=== PATIENT | female | born 1960 | race Hispanic/Latino ===

== ENCOUNTER 2022-08-22 18:10 | Inpatient (IN) | payer OTHER ==
[~2022-08-22] VITALS: Ht 154.9 cm; Wt 61.0 kg
[2022-08-22 20:20] VITALS: BP 141/82
[2022-08-22] MEDS ORDERED: LACTULOSE 20 GM/30 ML UDCUP PO PRN (21:00)
[2022-08-22] MEDS ORDERED: ACETAMINOPHEN 325 MG TAB PO PRN (21:00)
[2022-08-22] MEDS ORDERED: ONDANSETRON 4MG INJ IV PRN (21:00)
[2022-08-22] MEDS ORDERED: NITROGLYCERIN 0.4 MG SL TAB SL PRN (21:00)
[2022-08-22] MEDS: FAMOTIDINE 20MG TAB PO SCH (21:34)
[2022-08-23 00:30] VITALS: BP 113/64
[2022-08-23 04:12] VITALS: BP 120/62
[2022-08-23 04:29] LABS: BASOPHILS % (AUTO) 0.2 % (0.0-5.0); EOSINOPHILS % (AUTO) 0.1 % (0.0-8.0); HEMATOCRIT 34.7 % (36-48); LYMPHOCYTES % (AUTO) 19.2 % (21.0-51.0); MEAN CORPUSCULAR HEMOGLOBIN 30.4 pg (27.0-33.0); MEAN CORPUSCULAR HGB CONC 34.3 g/dL (32.0-36.0); MEAN CORPUSCULAR VOLUME 88.5 fL (79-99); MONOCYTES % (AUTO) 9.7 % (3.0-13.0); NEUTROPHILS % (AUTO) 70.3 % (40.0-77.0); PLATELET COUNT (AUTO) 238 K/uL (130-400); RED BLOOD CELL COUNT(AUTO) 3.92 MIL/uL (4.00-5.50); RED CELL DISTRIBUTION WIDTH 12.7 % (11.0-15.5); WHITE BLOOD COUNT (AUTO) 8.9 K/uL (4.8-10.8)
[2022-08-23 04:37] LABS: HEMOGLOBIN A1C 9.9 % (4.0-6.0)
[2022-08-23 04:54] LABS: ALBUMIN 3.3 g/dL (3.5-5.0); CREATININE 0.7 mg/dL (0.5-1.5); INR 0.93 (0.85-1.15); POTASSIUM 3.7 mmol/L (3.5-5.1); PROTHROMBIN TIME 9.9 SEC (9.6-11.6); TOTAL PROTEIN, SERUM 6.6 g/dL (6.0-8.3)
[2022-08-23 04:55] LABS: PARTIAL THROMBOPLASTIN TIME 37.8 SEC (26.3-35.5)
[2022-08-23 04:59] LABS: ABG BASE EXCESS -1.2 mmol/L (-2.0-3.0); ABG HCO3 22.1 mmol/L (21.0-28.0); ABG OXYGEN SATURATION 96.1 % (95.0-99.0); ABG PCO2 34 mmHg (32-45)
[2022-08-23 05:09] LABS: B-TYPE NATRIURETIC PEPTIDE 229 pg/mL (0-100)
[2022-08-23] MEDS ORDERED: HEPARIN 5,000 UNIT VIAL ONE (05:09)
[2022-08-23] MEDS ORDERED: HEPARIN 25,000 UNITS/250ML D5W 250 ML IV SCH (05:30)
[2022-08-23] MEDS ORDERED: HEPARIN 5,000 UNIT VIAL SQ PRN (05:30)
[2022-08-23] MEDS: INSULIN HUMULIN R 100 UNIT/ML 3ML SQ SCH ×4 (06:00→17:48)
[2022-08-23 07:00] VITALS: BP 116/72
[2022-08-23] MEDS: FAMOTIDINE 20MG TAB PO SCH ×2 (08:06→20:39)
[2022-08-23] MEDS: ASPIRIN 81 MG EC TAB PO SCH (08:06)
[2022-08-23] MEDS ORDERED: CLOPIDOGREL 75MG TAB PO SCH (09:00)
[2022-08-23 11:00] VITALS: BP 134/71
[2022-08-23 16:00] VITALS: BP 137/69
[2022-08-23 19:03] VITALS: BP 112/66
[2022-08-23] MEDS: ATORVASTATIN 40 MG TABLET PO SCH (20:39)
[2022-08-23] MEDS: METOPROLOL TARTRATE 25 MG TAB PO SCH (20:39)
[2022-08-24] VITALS (39 sets, daily range): BP systolic 19–226; BP diastolic 43–225
[2022-08-24 04:28] LABS: HEMATOCRIT 33.6 % (36-48); MEAN CORPUSCULAR HGB CONC 33.6 g/dL (32.0-36.0); MEAN CORPUSCULAR VOLUME 89.1 fL (79-99); RED BLOOD CELL COUNT(AUTO) 3.77 MIL/uL (4.00-5.50); RED CELL DISTRIBUTION WIDTH 12.8 % (11.0-15.5); WHITE BLOOD COUNT (AUTO) 7.9 K/uL (4.8-10.8)
[2022-08-24 04:42] LABS: INR 0.93 (0.85-1.15); PROTHROMBIN TIME 10.2 SEC (9.6-11.6)
[2022-08-24 04:44] LABS: CREATININE 0.7 mg/dL (0.5-1.5); PARTIAL THROMBOPLASTIN TIME 40.4 SEC (26.3-35.5); POTASSIUM 3.4 mmol/L (3.5-5.1)
[2022-08-24 05:00] LABS: ALBUMIN 2.9 g/dL (3.5-5.0); TOTAL PROTEIN, SERUM 6.7 g/dL (6.0-8.3)
[2022-08-24] MEDS: INSULIN HUMULIN R 100 UNIT/ML 3ML SQ SCH ×3 (05:07→11:39)
[2022-08-24] MEDS ORDERED: POTASSIUM CHLORIDE 10% ELIXIR 20 MEQ/15 ML UDCUP PO PRN (05:30)
[2022-08-24] MEDS ORDERED: LIDOCAINE HCL-MPF 1% 2ML VIAL IV PRN (05:30)
[2022-08-24] MEDS: KCL 20 MEQ ERTAB PO PRN (06:06)
[2022-08-24] MEDS ORDERED: PAPAVERINE HCL 30 MG/ML 2ML VIAL ONE (08:53)
[2022-08-24] MEDS ORDERED: CEFAZOLIN SODIUM 1 GM VIAL ONE ×2 (08:53→10:21)
[2022-08-24] MEDS: ASPIRIN 81 MG EC TAB PO SCH (08:54)
[2022-08-24] MEDS: FAMOTIDINE 20MG TAB PO SCH (08:55)
[2022-08-24] MEDS: METOPROLOL TARTRATE 25 MG TAB PO SCH (08:55)
[2022-08-24] MEDS ORDERED: NOREPINEPHRINE BITARTRATE 8 MG in DEXTROSE 5%-WATER 250 ML IV PRN (10:00)
[2022-08-24] MEDS ORDERED: EPINEPHRINE PF 1MG (1:1,000) 10 MG in 0.9% NACL 250ML 240 ML IV PRN ×2 (10:00→15:30)
[2022-08-24] MEDS ORDERED: AMINOCAPROIC ACID 5,000MG VIAL 15,000 MG in 0.9% NACL 500ML IV.SOLN 420 ML IV PRN (10:00)
[2022-08-24] MEDS ORDERED: NITROGLYCERIN 50MG/D5W 250ML 1 BOT ONE (10:16)
[2022-08-24] MEDS: CEFAZOLIN SODIUM 1 GM VIAL IVP SCH ×2 (10:51→12:20)
[2022-08-24] MEDS ORDERED: SODIUM BICARB 50MEQ 50ML VIAL 150 ML ONE ×2 (11:58→13:44)
[2022-08-24] MEDS ORDERED: EPINEPHRINE PF 1MG (1:1,000) 1 MG/ML AMP ONE (11:58)
[2022-08-24] MEDS ORDERED: LIDOCAINE PF 100MG/5ML (2%) SYRINGE 5ML ONE (11:58)
[2022-08-24] MEDS ORDERED: NOREPINEPHRINE BITARTRATE 1 MG/1 ML ML IV ONE (11:58)
[2022-08-24] MEDS ORDERED: AMINOCAPROIC ACID 5,000MG VIAL ONE (11:58)
[2022-08-24] MEDS ORDERED: HEPARIN 10,000 UNIT/10ML (1,000 UNIT/ML) VIAL ONE (11:58)
[2022-08-24] MEDS ORDERED: ESMOLOL HCL 10 MG/ML 10 ML VIAL ONE ×2 (11:58→14:05)
[2022-08-24] MEDS ORDERED: PROTAMINE SULFATE 10 MG/ML 25ML VIAL IV ONE (11:58)
[2022-08-24] MEDS ORDERED: PROPOFOL 10 MG/ML 20ML VIAL IV ONE (11:59)
[2022-08-24] MEDS ORDERED: MIDAZOLAM HCL 1 MG/ML 2ML VIAL ONE (12:00)
[2022-08-24] MEDS ORDERED: ROCURONIUM 10MG/1ML SYR 10 MG/ML ML ONE (12:00)
[2022-08-24] MEDS ORDERED: FENTANYL CITRATE PF 50 MCG/1 ML 20ML VIAL IJ ONE (12:00)
[2022-08-24] MEDS ORDERED: ETOMIDATE 20MG VIAL ONE (12:01)
[2022-08-24] MEDS ORDERED: VASOPRESSIN 20 UNITS/ML 1ML VIAL ONE (12:19)
[2022-08-24] MEDS ORDERED: AMIODARONE 150MG VIAL ONE (12:21)
[2022-08-24] MEDS ORDERED: METOPROLOL TARTRATE 1 MG/ML 5ML VIAL IV ONE (12:30)
[2022-08-24 12:55] LABS: ABG BASE EXCESS -8.3 mmol/L (-2.0-3.0); ABG HCO3 18.3 mmol/L (21.0-28.0); ABG OXYGEN SATURATION 99.6 % (95.0-99.0); ABG PCO2 42 mmHg (32-45)
[2022-08-24] MEDS ORDERED: SODIUM BICARB 50MEQ 50ML VIAL 200 ML ONE (13:06)
[2022-08-24 13:46] LABS: ABG BASE EXCESS 1.3 mmol/L (-2.0-3.0); ABG HCO3 23.3 mmol/L (21.0-28.0); ABG PCO2 28 mmHg (32-45)
[2022-08-24 14:17] LABS: ABG BASE EXCESS 4.5 mmol/L (-2.0-3.0); ABG HCO3 26.6 mmol/L (21.0-28.0); ABG PCO2 31 mmHg (32-45)
[2022-08-24 14:29] LABS: ABG HCO3 23.2 mmol/L (21.0-28.0); ABG PCO2 29 mmHg (32-45)
[2022-08-24 14:50] LABS: ABG BASE EXCESS -5.1 mmol/L (-2.0-3.0); ABG HCO3 17.3 mmol/L (21.0-28.0); ABG OXYGEN SATURATION 98.8 % (95.0-99.0); ABG PCO2 24 mmHg (32-45)
[2022-08-24 15:07] LABS: ABG BASE EXCESS 6.7 mmol/L (-2.0-3.0); ABG HCO3 28.4 mmol/L (21.0-28.0); ABG OXYGEN SATURATION 98.6 % (95.0-99.0); ABG PCO2 30 mmHg (32-45)
[2022-08-24] MEDS ORDERED: ONDANSETRON 4MG INJ IV PRN (15:30)
[2022-08-24] MEDS ORDERED: POTASSIUM PHOS 15 mMOL+NS250ML 250 ML IV PRN (15:30)
[2022-08-24] MEDS ORDERED: GLUCAGON 1MG KIT 1 MG ML IM PRN (15:30)
[2022-08-24] MEDS ORDERED: ACETAMINOPHEN 650 MG SUPPOSITORY RC PRN (15:30)
[2022-08-24] MEDS ORDERED: ALBUMIN (HUMAN) 5% 250 ML IV PRN (15:30)
[2022-08-24] MEDS ORDERED: PROPOFOL 1000 MG/100 ML 100 ML IV PRN (15:30)
[2022-08-24] MEDS ORDERED: NOREPINEPHRIN 4MG/NS 250ML 250 ML IV PRN (15:30)
[2022-08-24] MEDS ORDERED: AMINOCAPROIC ACID 5,000MG VIAL 15,000 MG in 0.9% NACL 250ML 250 ML IV SCH (15:30)
[2022-08-24] MEDS ORDERED: 0.9% NACL 500ML IV.SOLN 500 ML IV SCH (15:30)
[2022-08-24] MEDS ORDERED: DEXTROSE 50%-WATER 50 ML DISP.SYRIN IV PRN (15:30)
[2022-08-24] MEDS ORDERED: ACETAMINOPHEN 325 MG TAB PO PRN (15:30)
[2022-08-24] MEDS ORDERED: CALCIUM GLUC 1GM 1 GM in 0.9%NACL 50ML 50 ML IV PRN (15:30)
[2022-08-24] MEDS ORDERED: 0.9%NACL 10ML VIAL IVP PRN (15:30)
[2022-08-24] MEDS ORDERED: MORPHINE 2 MG SYG IV PRN ×2 (15:30)
[2022-08-24] MEDS ORDERED: 0.9%NACL 1000ML 1,000 ML IV SCH (15:30)
[2022-08-24] MEDS ORDERED: NITROGLYCERIN 50MG/D5W 250ML 250 BOT IV SCH (15:30)
[2022-08-24 15:32] LABS: ABG BASE EXCESS 5.7 mmol/L (-2.0-3.0); ABG HCO3 28.6 mmol/L (21.0-28.0); ABG OXYGEN SATURATION 98.6 % (95.0-99.0); ABG PCO2 34 mmHg (32-45)
[2022-08-24] MEDS ORDERED: ASPIRIN 81MG CHEW TAB NG ONE (16:00)
[2022-08-24 16:13] LABS: ABG BASE EXCESS -1.1 mmol/L (-2.0-3.0); ABG HCO3 22.6 mmol/L (21.0-28.0); ABG OXYGEN SATURATION 89.8 % (95.0-99.0); ABG PCO2 34 mmHg (32-45)
[2022-08-24 16:26] LABS: MEAN CORPUSCULAR HEMOGLOBIN 30.4 pg (27.0-33.0); MEAN CORPUSCULAR HGB CONC 33.8 g/dL (32.0-36.0); RED BLOOD CELL COUNT(AUTO) 2.89 MIL/uL (4.00-5.50); RED CELL DISTRIBUTION WIDTH 12.9 % (11.0-15.5)
[2022-08-24 16:34] LABS: INR 1.18 (0.85-1.15); PROTHROMBIN TIME 12.7 SEC (9.6-11.6)
[2022-08-24 16:35] LABS: CREATININE 0.9 mg/dL (0.5-1.5); MAGNESIUM 1.6 mg/dL (1.80-2.40); PARTIAL THROMBOPLASTIN TIME 20.6 SEC (26.3-35.5); PHOSPHORUS 6.5 mg/dL (2.5-4.9); POTASSIUM 3.7 mmol/L (3.5-5.1)
[2022-08-24 17:09] LABS: ABG BASE EXCESS 0.7 mmol/L (-2.0-3.0); ABG HCO3 24.8 mmol/L (21.0-28.0); ABG PCO2 38 mmHg (32-45)
[2022-08-24] MEDS: MAGNESIUM 2GM PREMIX 50ML 50 ML IV PRN (17:14)
[2022-08-24] MEDS: SODIUM BICARB 50MEQ 50ML VIAL IV PRN ×2 (17:15→20:52)
[2022-08-24] MEDS: POTASSIUM CHLORIDE 20MEQ/100ML 100 ML IV PRN ×9 (17:16→23:37)
[2022-08-24] MEDS: INSULIN REGULAR, HUMAN 3ML 100 UNIT in 0.9%NACL 100ML 99 ML IV SCH ×4 (17:17→21:08)
[2022-08-24] MEDS ORDERED: FUROSEMIDE 20MG VIAL IV SCH (17:22)
[2022-08-24 18:33] LABS: ABG BASE EXCESS -0.7 mmol/L (-2.0-3.0); ABG HCO3 21.7 mmol/L (21.0-28.0); ABG OXYGEN SATURATION 95.6 % (95.0-99.0); ABG PCO2 30 mmHg (32-45)
[2022-08-24] MEDS ORDERED: INSULIN GLARGINE 100 UNITS/ML 10 ML VIAL SQ STA (18:46)
[2022-08-24 19:44] LABS: ABG BASE EXCESS -0.1 mmol/L (-2.0-3.0); ABG HCO3 21.9 mmol/L (21.0-28.0); ABG OXYGEN SATURATION 98.5 % (95.0-99.0); ABG PCO2 28 mmHg (32-45)
[2022-08-24] MEDS: ATORVASTATIN 40 MG TABLET PO SCH (20:08)
[2022-08-24] MEDS: FAMOTIDINE 20MG VIAL IV SCH (20:08)
[2022-08-24] MEDS: CEFAZOLIN SODIUM 1 GM VIAL IV SCH (20:08)
[2022-08-24 20:48] LABS: ABG BASE EXCESS -1.9 mmol/L (-2.0-3.0); ABG HCO3 20.2 mmol/L (21.0-28.0); ABG OXYGEN SATURATION 97.3 % (95.0-99.0); ABG PCO2 27 mmHg (32-45)
[2022-08-24] MEDS: INSULIN GLARGINE 100 UNITS/ML 10 ML VIAL SQ SCH (21:08)
[2022-08-24 22:06] LABS: ABG BASE EXCESS 1.1 mmol/L (-2.0-3.0); ABG HCO3 22.5 mmol/L (21.0-28.0); ABG PCO2 27 mmHg (32-45)
[2022-08-24 23:33] LABS: ABG BASE EXCESS 2.3 mmol/L (-2.0-3.0); ABG HCO3 23.7 mmol/L (21.0-28.0); ABG OXYGEN SATURATION 96.8 % (95.0-99.0); ABG PCO2 28 mmHg (32-45)
[2022-08-25] VITALS (80 sets, daily range): BP systolic 81–169; BP diastolic 38–105
[2022-08-25 00:26] LABS: ABG BASE EXCESS 4.4 mmol/L (-2.0-3.0); ABG HCO3 26.9 mmol/L (21.0-28.0); ABG OXYGEN SATURATION 96.3 % (95.0-99.0); ABG PCO2 33 mmHg (32-45)
[2022-08-25 02:08] LABS: ABG BASE EXCESS 5.2 mmol/L (-2.0-3.0); ABG HCO3 27.8 mmol/L (21.0-28.0); ABG OXYGEN SATURATION 96.7 % (95.0-99.0); ABG PCO2 34 mmHg (32-45)
[2022-08-25] MEDS: POTASSIUM CHLORIDE 20MEQ/100ML 100 ML IV PRN (02:32)
[2022-08-25 03:55] LABS: ABG BASE EXCESS 6.3 mmol/L (-2.0-3.0); ABG HCO3 29.5 mmol/L (21.0-28.0); ABG OXYGEN SATURATION 95.8 % (95.0-99.0); ABG PCO2 38 mmHg (32-45)
[2022-08-25 04:06] LABS: HEMATOCRIT 32.1 % (36-48); MEAN CORPUSCULAR HEMOGLOBIN 29.8 pg (27.0-33.0); MEAN CORPUSCULAR VOLUME 87.7 fL (79-99); RED BLOOD CELL COUNT(AUTO) 3.66 MIL/uL (4.00-5.50); RED CELL DISTRIBUTION WIDTH 13.9 % (11.0-15.5); WHITE BLOOD COUNT (AUTO) 11.2 K/uL (4.8-10.8)
[2022-08-25 04:18] LABS: INR 0.98 (0.85-1.15); PROTHROMBIN TIME 10.7 SEC (9.6-11.6)
[2022-08-25 04:19] LABS: PARTIAL THROMBOPLASTIN TIME 22.9 SEC (26.3-35.5)
[2022-08-25 04:22] LABS: PHOSPHORUS 0.8 mg/dL (2.5-4.9); POTASSIUM 4.7 mmol/L (3.5-5.1)
[2022-08-25] MEDS: CEFAZOLIN SODIUM 1 GM VIAL IV SCH ×2 (04:49→11:57)
[2022-08-25] MEDS: TRAMADOL HCL 50 MG TABLET PO PRN ×3 (04:50→15:25)
[2022-08-25] MEDS: ACETAMINOPHEN 325 MG TAB PO PRN ×2 (07:10→12:24)
[2022-08-25] MEDS: INSULIN GLARGINE 100 UNITS/ML 10 ML VIAL SQ SCH (07:30)
[2022-08-25] MEDS: ASPIRIN 81 MG EC TAB PO SCH (07:42)
[2022-08-25] MEDS: FAMOTIDINE 20MG VIAL IV SCH ×2 (07:42→20:30)
[2022-08-25] MEDS: FUROSEMIDE 20MG VIAL IV SCH ×2 (07:42→20:30)
[2022-08-25 14:45] LABS: PHOSPHORUS 4.7 mg/dL (2.5-4.9); POTASSIUM 4.2 mmol/L (3.5-5.1)
[2022-08-25 19:00] LABS: ABG BASE EXCESS 3.8 mmol/L (-2.0-3.0); ABG HCO3 29.2 mmol/L (21.0-28.0); ABG OXYGEN SATURATION 91.3 % (95.0-99.0); ABG PCO2 48 mmHg (32-45)
[2022-08-25] MEDS: ATORVASTATIN 40 MG TABLET PO SCH (20:30)
[2022-08-25 20:51] LABS: ABG BASE EXCESS 3.7 mmol/L (-2.0-3.0); ABG HCO3 28.8 mmol/L (21.0-28.0); ABG OXYGEN SATURATION 92.8 % (95.0-99.0); ABG PCO2 46 mmHg (32-45)
[2022-08-26] VITALS (19 sets, daily range): BP systolic 94–146; BP diastolic 43–78
[2022-08-26 04:24] LABS: HEMATOCRIT 32.2 % (36-48); MEAN CORPUSCULAR HEMOGLOBIN 29.9 pg (27.0-33.0); MEAN CORPUSCULAR HGB CONC 32.3 g/dL (32.0-36.0); MEAN CORPUSCULAR VOLUME 92.5 fL (79-99); RED BLOOD CELL COUNT(AUTO) 3.48 MIL/uL (4.00-5.50); RED CELL DISTRIBUTION WIDTH 14.9 % (11.0-15.5); WHITE BLOOD COUNT (AUTO) 13.1 K/uL (4.8-10.8)
[2022-08-26 04:43] LABS: CREATININE 0.8 mg/dL (0.5-1.5); POTASSIUM 3.9 mmol/L (3.5-5.1)
[2022-08-26] MEDS: POTASSIUM CHLORIDE 20MEQ/100ML 100 ML IV PRN (05:08)
[2022-08-26 06:43] LABS: ABG BASE EXCESS 1.3 mmol/L (-2.0-3.0); ABG HCO3 26.1 mmol/L (21.0-28.0); ABG OXYGEN SATURATION 94.4 % (95.0-99.0); ABG PCO2 42 mmHg (32-45)
[2022-08-26] MEDS: MAGNESIUM 2GM PREMIX 50ML 50 ML IV PRN (06:50)
[2022-08-26] MEDS: FUROSEMIDE 20 MG TABLET PO SCH ×2 (07:35→16:24)
[2022-08-26] MEDS: METOPROLOL TARTRATE 25 MG TAB PO SCH ×2 (07:35→20:42)
[2022-08-26] MEDS: TRAMADOL HCL 50 MG TABLET PO PRN (07:35)
[2022-08-26] MEDS: FAMOTIDINE 20MG VIAL IV SCH (07:35)
[2022-08-26] MEDS: ASPIRIN 81 MG EC TAB PO SCH (07:35)
[2022-08-26] MEDS: INSULIN HUMULIN R 100 UNIT/ML 3ML SQ SCH ×3 (11:30→19:53)
[2022-08-26] MEDS ORDERED: PRAV20TA4 PO (14:09)
[2022-08-26] MEDS ORDERED: METF-446 PO (14:09)
[2022-08-26] MEDS ORDERED: LISI5TAB21 PO (14:09)
[2022-08-26] MEDS ORDERED: METF-444 PO (14:09)
[2022-08-26] MEDS: ATORVASTATIN 40 MG TABLET PO SCH (20:43)
[2022-08-26] MEDS: FAMOTIDINE 20MG TAB PO SCH (20:43)
[2022-08-27 03:12] VITALS: BP 101/60
[2022-08-27 03:53] LABS: BASOPHILS % (AUTO) 0.3 % (0.0-5.0); EOSINOPHILS % (AUTO) 0.1 % (0.0-8.0); HEMATOCRIT 27.9 % (36-48); LYMPHOCYTES % (AUTO) 20.1 % (21.0-51.0); MEAN CORPUSCULAR HEMOGLOBIN 29.6 pg (27.0-33.0); MEAN CORPUSCULAR HGB CONC 31.9 g/dL (32.0-36.0); MEAN CORPUSCULAR VOLUME 92.7 fL (79-99); MONOCYTES % (AUTO) 6.5 % (3.0-13.0); NEUTROPHILS % (AUTO) 72.5 % (40.0-77.0); PLATELET COUNT (AUTO) 143 K/uL (130-400); RED BLOOD CELL COUNT(AUTO) 3.01 MIL/uL (4.00-5.50); RED CELL DISTRIBUTION WIDTH 14.4 % (11.0-15.5)
[2022-08-27 04:26] LABS: CREATININE 0.9 mg/dL (0.5-1.5); MAGNESIUM 2.2 mg/dL (1.80-2.40)
[2022-08-27] MEDS: INSULIN HUMULIN R 100 UNIT/ML 3ML SQ SCH ×4 (05:47→21:43)
[2022-08-27 06:50] VITALS: BP 114/66
[2022-08-27] MEDS: TRAMADOL HCL 50 MG TABLET PO PRN ×2 (09:04→17:09)
[2022-08-27] MEDS: FUROSEMIDE 20 MG TABLET PO SCH ×2 (09:04→17:08)
[2022-08-27] MEDS: FAMOTIDINE 20MG TAB PO SCH ×2 (09:05→21:34)
[2022-08-27] MEDS: ASPIRIN 81 MG EC TAB PO SCH (09:05)
[2022-08-27] MEDS: METOPROLOL TARTRATE 25 MG TAB PO SCH ×2 (09:05→21:34)
[2022-08-27 12:25] VITALS: BP 109/57
[2022-08-27 14:41] LABS: THYROID STIMULATING HORMONE 1.63 uIU/mL (0.36-3.74)
[2022-08-27 16:00] VITALS: BP 119/69
[2022-08-27 19:01] VITALS: BP 108/69
[2022-08-27] MEDS: ATORVASTATIN 40 MG TABLET PO SCH (21:34)
[2022-08-27 23:16] VITALS: BP 95/61
[2022-08-28 03:26] VITALS: BP 90/53
[2022-08-28] MEDS: INSULIN HUMULIN R 100 UNIT/ML 3ML SQ SCH ×4 (05:55→20:15)
[2022-08-28 07:00] VITALS: BP 106/57
[2022-08-28 07:08] LABS: BASOPHILS % (AUTO) 0.3 % (0.0-5.0); EOSINOPHILS % (AUTO) 0.7 % (0.0-8.0); HEMATOCRIT 31.9 % (36-48); LYMPHOCYTES % (AUTO) 20.9 % (21.0-51.0); MEAN CORPUSCULAR HEMOGLOBIN 29.3 pg (27.0-33.0); MEAN CORPUSCULAR HGB CONC 32.3 g/dL (32.0-36.0); MEAN CORPUSCULAR VOLUME 90.6 fL (79-99); MONOCYTES % (AUTO) 7.6 % (3.0-13.0); NEUTROPHILS % (AUTO) 69.8 % (40.0-77.0); PLATELET COUNT (AUTO) 186 K/uL (130-400); RED BLOOD CELL COUNT(AUTO) 3.52 MIL/uL (4.00-5.50); RED CELL DISTRIBUTION WIDTH 13.6 % (11.0-15.5); WHITE BLOOD COUNT (AUTO) 7.1 K/uL (4.8-10.8)
[2022-08-28 07:19] LABS: CREATININE 0.7 mg/dL (0.5-1.5); POTASSIUM 3.7 mmol/L (3.5-5.1)
[2022-08-28] MEDS: FAMOTIDINE 20MG TAB PO SCH ×2 (09:31→20:11)
[2022-08-28] MEDS: METOPROLOL TARTRATE 25 MG TAB PO SCH ×2 (09:31→20:12)
[2022-08-28] MEDS: ASPIRIN 81 MG EC TAB PO SCH (09:31)
[2022-08-28] MEDS: FUROSEMIDE 20 MG TABLET PO SCH ×2 (09:32→16:27)
[2022-08-28] MEDS: ENOXAPARIN SODIUM 30 MG/0.3 ML SQ SCH (09:32)
[2022-08-28] MEDS: KCL 20 MEQ ERTAB PO PRN ×2 (09:37→11:18)
[2022-08-28] MEDS: TRAMADOL HCL 50 MG TABLET PO PRN (09:38)
[2022-08-28] MEDS ORDERED: HEPARIN 10,000 UNIT/10ML (1,000 UNIT/ML) VIAL ONE (10:47)
[2022-08-28 11:00] VITALS: BP 112/65
[2022-08-28 16:00] VITALS: BP 119/70
[2022-08-28 20:00] VITALS: BP 112/5
[2022-08-28] MEDS: ATORVASTATIN 40 MG TABLET PO SCH (20:11)
[2022-08-28 23:22] VITALS: BP 105/56
[2022-08-29 03:26] VITALS: BP 117/71
[2022-08-29] MEDS: INSULIN HUMULIN R 100 UNIT/ML 3ML SQ SCH (05:35)
[2022-08-29 07:00] VITALS: BP 125/70
[2022-08-29] MEDS ORDERED: ATOR40TA69 PO (07:11)
[2022-08-29] MEDS ORDERED: AEC81 PO (07:11)
[2022-08-29] MEDS ORDERED: METO25 PO (07:11)
[2022-08-29] MEDS ORDERED: FURO20TA6 PO (07:11)
[2022-08-29] MEDS: FAMOTIDINE 20MG TAB PO SCH (07:52)
[2022-08-29] MEDS: FUROSEMIDE 20 MG TABLET PO SCH (07:52)
[2022-08-29] MEDS: METOPROLOL TARTRATE 25 MG TAB PO SCH (07:52)
[2022-08-29] MEDS: ENOXAPARIN SODIUM 30 MG/0.3 ML SQ SCH (07:52)
[2022-08-29] MEDS: ASPIRIN 81 MG EC TAB PO SCH (07:52)
== END 2022-08-29 11:01 | disposition home or self-care (01) | DRG 235 ==
LOC: 2DH 20:01 → 2CV 08-24 12:13 → 2AH 08-26 18:06
PROVIDERS: ADMIT Hospitalist; ATTEND Hospitalist
PROC: 30233N1 Transfusion of Nonautologous Red Blood Cells into Peripheral Vein, Percutaneous Approach (ICD-10-PCS; 2022-08-24)
PROC: 02100Z9 Bypass Coronary Artery, One Artery from Left Internal Mammary, Open Approach (ICD-10-PCS; principal; 2022-08-24 11:56)
PROC: 0211093 Bypass Coronary Artery, Two Arteries from Coronary Artery with Autologous Venous Tissue, Open Approach (ICD-10-PCS; 2022-08-24 11:56)
PROC: 06BQ4ZZ Excision of Left Saphenous Vein, Percutaneous Endoscopic Approach (ICD-10-PCS; 2022-08-24 11:56)
PROC: 5A02210 Assistance with Cardiac Output using Balloon Pump, Continuous (ICD-10-PCS; 2022-08-24 11:56)
DX: I25.119 Atherosclerotic heart disease of native coronary artery with unspecified angina pectoris (principal); I21.4 Non-ST elevation (NSTEMI) myocardial infarction; I50.41 Acute combined systolic (congestive) and diastolic (congestive) heart failure; J95.1 Acute pulmonary insufficiency following thoracic surgery; Z20.822 Contact with and (suspected) exposure to COVID-19; I11.0 Hypertensive heart disease with heart failure; E03.9 Hypothyroidism, unspecified; E11.65 Type 2 diabetes mellitus with hyperglycemia; E78.00 Pure hypercholesterolemia, unspecified; I25.2 Old myocardial infarction; Z82.49 Family history of ischemic heart disease and other diseases of the circulatory system; Z79.899 Other long term (current) drug therapy; Z79.82 Long term (current) use of aspirin
CPT/HCPCS: 36415; 36600; 71045; 80048; 80053; 80061; 82435; 82803; 82947; 82948; 83036; 83605; 83735; 83880; 84100; 84132; 84295; 84439; 84443; 84484; 85018; 85025; 85027; 85347; 85610; 85730; 86850; 86900; 86901; 86922; 86923; 87635; 87641; 93005; 93880; 94002; 94003; 94010; 94150; 94660; 97039; A7048; C1757; G0378; J0171; J0282; J0610; J0690; J1644; J1650; J1815; J1940; J2001; J2250; J2440; J2704; J2720; J3010; J3475; J3480; J3490; J7030; J7040; P9016